=== PATIENT | male | born 1945 | race Caucasian/White ===

== ENCOUNTER → 2019-09-28 10:02 | Outpatient (BNVA) | payer MEDICARE, BC, SELFPAY | PROVIDERS: Family Provider Family Medicine; PCP Family Medicine; Visit Provider Urology | DX: R97.20 Elevated prostate specific antigen [PSA] (principal); N40.1 Benign prostatic hyperplasia with lower urinary tract symptoms; N13.8 Other obstructive and reflux uropathy | CPT/HCPCS: 81001; 84153 ==

== ENCOUNTER 2020-01-24 16:23 | Outpatient (CLI) | payer MEDICARE, BC, SELFPAY ==
--- NOTE | 2020-01-24 | CTR_ITS ---
PROCEDURE INFORMATION: Exam: CT Abdomen And Pelvis With Contrast Exam date and time: 01/24/2020 4:50 PM Age: 74 years old Clinical indication: Abdominal pain; Localized; Right lower quadrant (rlq); Patient HX: Please call report to Dr luu [phone]; Additional info: Acute rlq pain TECHNIQUE: Imaging protocol: Computed tomography of the abdomen and pelvis with intravenous contrast. Radiation optimization: All CT scans at this facility use at least one of these dose optimization techniques: automated exposure control; mA and/or kV adjustment per patient size (includes targeted exams where dose is matched to clinical indication); or iterative reconstruction. Contrast material: OMNI 300; Contrast volume: 95 ml; Contrast route: INTRAVENOUS (IV); Other contrast: Oral, OMNI 300, 25; COMPARISON: No relevant prior studies available. RADIATION DOSE METRICS: Total DLP (mGy-cm): 604.15 FINDINGS: Liver: Unremarkable. No mass. Gallbladder and bile ducts: Normal. No calcified stones. No ductal dilation. Pancreas: Normal. No ductal dilation. Spleen: Few calcified splenic granulomas. Spleen otherwise unremarkable. Adrenals: Normal. No mass. Kidneys and ureters: Examination reveals a tiny proximal right ureteral lithiasis measuring 2 mm with resulting mild right pelvicaliectasis. The stone is located approximately 3 cm from the right ureteropelvic junction. No visible residual nephrolithiasis right kidney. No visible nephrolithiasis left kidney. No hydronephrosis left kidney. Tiny benign cortical cyst equator left kidney. No follow-up recommended. Stomach and bowel: Diverticulosis coli without evidence for diverticulitis. Nonobstructive bowel pattern. Heavy fecal residue consistent with constipation. No visible adynamic or reactive ileus. Appendix: Appendix is noninflamed. Intraperitoneal space: Unremarkable. No free air. No significant fluid collection. Vasculature: The abdominal aorta is nonaneurysmal. Mild arterial sclerotic disease. Duplex inferior vena cava. Lymph nodes: Unremarkable. No enlarged lymph nodes. Bladder: Urinary bladder without filling defect. Reproductive: Prostate hypertrophy. Bones/joints: Age-appropriate degenerative disease of the spine. Degenerative disc disease most advanced L2/L3 and L5/S1. Soft tissues: Unremarkable. CT/CT abdomen pelvis w con* [id number] IMPRESSION: Examination reveals a tiny proximal right ureteral lithiasis measuring 2 mm with resulting mild right pelvicaliectasis. The stone is located approximately 3 cm from the right ureteropelvic junction. COMMENTS: Consistent with the [employer]'s Incidental Findings Committee white paper (J Am David Radiol 2018): Any incidental renal lesion less than 1.0 cm or classified as too small to characterize, or any incidental cystic renal lesion characterized as simple-appearing, is likely benign. No follow-up imaging is recommended for these lesions per consensus recommendations based on imaging criteria. Radiation Dose CTDIVOL = (mGy): DLP = 604.15 (mGy-cm)
[2020-01-24 17:22] LABS: Blood Urea Nitrogen 12 mg/dL (8-23)
[2020-01-24] MEDS: iohexol 300 mg/mL 50 mL Btl PO (18:18)
[2020-01-24] MEDS: iohexol 300 mg/mL 100 mL Btl IV (18:18)
== END 2020-01-24 16:24 | disposition home or self-care (01) ==
LOC: RAD 16:30
PROVIDERS: PCP Family Medicine; Visit Provider Family Medicine
DX: R10.31 Right lower quadrant pain (principal); N20.1 Calculus of ureter
CPT/HCPCS: 36415; 74177; 82565; 84520

== ENCOUNTER → 2020-09-26 09:42 | Outpatient (BNVA) | payer MEDICARE, BC, SELFPAY | PROVIDERS: PCP Family Medicine; Visit Provider Urology | DX: R97.20 Elevated prostate specific antigen [PSA] (principal); N40.1 Benign prostatic hyperplasia with lower urinary tract symptoms; N13.8 Other obstructive and reflux uropathy; N42.89 Other specified disorders of prostate | CPT/HCPCS: 81003; 84153 ==

== ENCOUNTER 2021-05-07 12:34 | Outpatient (CLI) | payer MEDICARE, BC, SELFPAY ==
[2021-05-07 12:40] VITALS: BP 139/81; PULSE 81; RESP 16; TEMP 36.7; O2SAT 97; BMI 22.7
[2021-05-07 13:39] VITALS: BP 146/76; PULSE 65; RESP 16; TEMP 36.6; O2SAT 97
[2021-05-07 14:39] VITALS: BP 148/81; PULSE 64; RESP 16; TEMP 36.5; O2SAT 98
[2021-05-07 14:52] VITALS: BP 148/81; PULSE 64; RESP 16; TEMP 36.5
== END 2021-05-07 12:35 | disposition home or self-care (01) ==
LOC: OPS 12:40
PROVIDERS: PCP Family Medicine; Visit Provider Nurse Practitioner
DX: U07.1 COVID-19 (principal)
CPT/HCPCS: 96365

== ENCOUNTER 2021-06-18 06:00 | Outpatient (RCR) | payer MEDICARE, BC, SELFPAY | END 2021-07-02 23:59 | disposition home or self-care (01) | LOC: SPT 06:00 | PROVIDERS: PCP Family Medicine; Referring Provider Family Medicine; Visit Provider Family Medicine | DX: T79.A29A Traumatic compartment syndrome of unspecified lower extremity, initial encounter (principal) | CPT/HCPCS: 97161 ==

== ENCOUNTER 2021-06-26 10:35 | Outpatient (CLI) | payer MEDICARE, BC, SELFPAY | END 2021-06-26 10:36 | disposition home or self-care (01) | LOC: SPT 10:36 | PROVIDERS: PCP Family Medicine; Visit Provider Podiatrist Foot & Ankle Surgery | DX: Z46.89 Encounter for fitting and adjustment of other specified devices (principal); E11.9 Type 2 diabetes mellitus without complications; M20.20 Hallux rigidus, unspecified foot; M21.41 Flat foot [pes planus] (acquired), right foot; M21.42 Flat foot [pes planus] (acquired), left foot; M72.2 Plantar fascial fibromatosis | CPT/HCPCS: 97760; L3030 ==

== ENCOUNTER 2022-03-11 06:48 | Outpatient (CLI) | payer MEDICARE, BC, SELFPAY ==
[2022-03-11 07:38] LABS: Prostate Specific AG Urology 1.18 ng/mL (0-4)
== END 2022-03-11 06:49 | disposition home or self-care (01) ==
LOC: LAB 06:50
PROVIDERS: PCP Family Medicine; Visit Provider Urology
DX: R97.20 Elevated prostate specific antigen [PSA] (principal); N40.1 Benign prostatic hyperplasia with lower urinary tract symptoms; N13.8 Other obstructive and reflux uropathy; N42.89 Other specified disorders of prostate
CPT/HCPCS: 51741; 51798; 81003; 84153; 99213

== ENCOUNTER → 2022-12-22 07:38 | Outpatient (BNVA) | payer OTHER, SELFPAY | PROVIDERS: PCP Family Medicine; Visit Provider Podiatrist Foot & Ankle Surgery | DX: M20.21 Hallux rigidus, right foot (principal); M20.22 Hallux rigidus, left foot; M21.41 Flat foot [pes planus] (acquired), right foot; M21.42 Flat foot [pes planus] (acquired), left foot; L84 Corns and callosities; E11.42 Type 2 diabetes mellitus with diabetic polyneuropathy; Z79.4 Long term (current) use of insulin | CPT/HCPCS: 99214 ==

== ENCOUNTER 2023-03-26 08:43 | Emergency (ER) | payer OTHER, SELFPAY ==
[2023-03-26 08:48] VITALS: BP 163/91; PULSE 79; RESP 15; TEMP 36.5; O2SAT 97
--- NOTE | 2023-03-26 08:48 | ED_ITS ---
HPI - Extremity Problem General: Chief complaint: Extremity Problem,Nontraumatic Stated complaint[facility] Time Seen by Provider: 03/26/23 08:45 Source: patient Mode of arrival: ambulatory Limitations: no limitations History of Present Illness: Patient is a 77-year-old male with history of hyperlipidemia, hypertension, and diabetes who presents to the emergency department complaining of left lower extremity swelling onset 4-5 years but acutely worsening over the past few days. [facility] his acute worsening of his chronic lower leg edema for rule out DVT. He also notes the presence of multiple painful knots to his medial thigh. He denies any changes in strength or sensations, and further denies any paresthesias. He also states he has no history of DVT and has not been having any chest pain or shortness of breath. Patient states that he was seen by PCP recently for the leg swelling and discontinued on his amlodipine and started on losartan although has not began taking it yet. Otherwise he has not noticed any overlying skin changes to the left lower extremity, any further denies any other infectious symptoms. MD Complaint: extremity swelling (Left lower extremity) Onset (ago): year(s) Location: left and lower extremity Radiation: proximal Relieving factors: nothing Exacerbating factors: nothing Associated symptoms: Deny chest pain, fever(s) or rash Review of Systems Const: Denies: fever(s) or chills Eyes: Denies: change in vision or blurry vision Card: Denies: chest pain, palpitations, irregular heart rhythm, lightheadedness, syncope or dyspnea on exertion Resp: Denies: dyspnea, productive cough or pain on inspiration GI: Denies: abdominal pain, nausea, vomiting, heartburn or diarrhea : Denies: difficulty urinating or dysuria Musc: Reports: extremity pain ( Knots in left lower extremity) and extremity swelling (Left lower extremity); Denies: neck pain, back pain, joint pain or muscle weakness Skin/Breast: Denies: rash Neuro: Denies: numbness in extremities, weakness in extremities or sensory changes PFSH ED PFSH: Medical History Abnormal prostate specific antigen (PSA) 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 Social History Smoking and tobacco status: former smoker Alcohol intake: current Alcohol intake frequency: few times a month Substance/Drug Use: never Adopted: No Caregiver/support person: No Lives independently: No Household members: spouse Marital status: Current occupational status: retired Current gender identity: Male Physical Exam Const: COMMON NORMALS: no acute distress, average body habitus, patient oriented x3, no limitations, healthy appearing, alert and well nourished Resp: COMMON NORMALS: normal respiratory effort and clear to auscultation bilaterally AUSCULTATION: clear to auscultation bilaterally Cardio: COMMON NORMALS: regular rate and regular rhythm RATE: regular rate RHYTHM: regular rhythm Extremity: COMMON NORMALS: full ROM, capillary refill normal and no joint enlargement GENERAL: Yes normal exam except as noted LEFT LOWER EXTREMITY: Yes upper leg and Yes lower leg OTHER: L LE with obvious edema when compared to R LE; no pitting edema noted; he has no firmness to his calf and a negative Chula's; chronic varicosities noted; few areas of palpable cords consistent with superficial thrombophlebitis was notably to his left medial thigh; distal sensation, cap refill, and pulses normal Neuro: COMMON NORMALS: patient oriented x3, moves all extremities, no focal motor deficits, no sensory deficits noted and gait normal SENSORIUM/ORIENTATION: Yes alert Skin: COMMON NORMALS: no rashes or lesions noted GENERAL SKIN EXAM: no rashes or lesions noted TRAUMA: no lacerations or abrasions Course Vital Signs: Vital signs: Vital Signs Temperature 97.7 F 03/26/23 08:48 Pulse Rate 79 03/26/23 11:54 Respiratory Rate 15 03/26/23 11:54 Blood Pressure 163/91 03/26/23 11:54 Pulse Oximetry 97 03/26/23 11:54 Oxygen Delivery Me thod Room Air 03/26/23 08:48 MDM - Extremity (Nontraumatic) Medical Decision Making Ultrasound showing superficial thrombophlebitis. He has no DVT. Discussed symptomatic and conservative therapies at home. He can follow-up with [facility] in 2 weeks for repeat evaluation. Return to ED precautions given. Discharge Plan Discharge Patient Disposition: Home Clinical Impression: Acute superficial venous thrombosis of left lower extremity Condition: Stable Prescriptions: No Action finasteride 5 mg tablet 5 mg PO DAILY melatonin 3 mg capsule 3 mg PO DAILY PRN (Reason: Sleep) ibuprofen 200 mg capsule 200 mg PO Q6H PRN (Reason: Pain) saw palmetto 500 mg capsule 500 mg PO BID metformin 500 mg tablet 1,000 mg PO DAILY aspirin [Adult Low Dose Aspirin] 81 mg tablet,delayed release (DR/EC) 81 mg PO DAILY alogliptin 25 mg tablet 25 mg PO DAILY tamsulosin 0.4 mg capsule 0.4 mg PO DAILY (DME) custom orthotics See Rx Instructions .ROUTE .MEDSUPPLY Qty: 1 0RF Rx Instructions: As directed (DME) custom molded orthotics See Rx Instructions .Route .MEDSUPPLY Qty: 1 0RF Rx Instructions: As directed Multi-Vitamin Tablet 1 tab PO DAILY atorvastatin 20 mg tablet 10 mg PO DAILY losartan-hydrochlorothiazide 50-12.5 mg tablet 1 tab PO DAILY Probiotic 3 billion cell Capsule 3,000 mmu cells PO DAILY Rx Instructions: administer with a meal Discharge Orders: Discharge ED (Routine); Ordered 03/26/23 Ordered By: Leda Momin Referrals: Jak Xie MD [Primary Care Provider] - Patient Instructions: Superficial Thrombophlebitis (ED), Thrombophlebitis - Superficial Activity Restrictions/Additional Instructions: We discussed your ultrasound today showed thrombus/clot within your superficial veins. We do not treat these with anticoagulation ( blood thinners ) and instead treat them with/heat and anti-inflammatory pain medication. Please follow-up with your primary care provider in the next 2 weeks for follow-up. Coding Level of Care Code ED Overhead Cleaner Maintainer for Eduard Devine
--- NOTE | 2023-03-26 10:14 | USCV_ITS ---
Reji Ramírez Age: 77 Gender: M : 1945 Exam Date: 03/26/2023 10:55 Ordering Phys: Leda Momin Technologist: Jamir Barros Exam Location: [facility] [place]_ Indication: lt leg pain with knots PROCEDURES: Venous duplex imaging was performed in only the left lower extremity. The following venous structures were evaluated: common femoral vein, profunda vein, proximal portion of the greater saphenous vein, superficial femoral vein, and the popliteal vein. In addition, the posterior tibial and peroneal trunk were evaluated. FINDINGS: There is a large amount of superfical thrombus in the lower gsaph. The deep veins are normal. CONCLUSIONS Occluding large SVT in the lower greater saphenous vein.. Remainder LLE normal Tapper Bit notified provider at time of exam Colton Oneill MD (Electronically Signed) Final Date: 26 March 2023 11:24 S
[2023-03-26 11:54] VITALS: BP 163/91; PULSE 79; RESP 15; O2SAT 97
== END 2023-03-26 11:56 | disposition home or self-care (01) ==
PROVIDERS: Emergency Provider Physician Assistant; PCP Family Medicine
DX: I82.812 Embolism and thrombosis of superficial veins of left lower extremity (principal); Z79.82 Long term (current) use of aspirin; Z79.84 Long term (current) use of oral hypoglycemic drugs; Z87.891 Personal history of nicotine dependence
CPT/HCPCS: 93971; 99284

== ENCOUNTER 2023-05-25 11:19 | Outpatient (CLI) | payer MEDICARE, BC, SELFPAY ==
--- NOTE | 2023-05-25 11:29 | USCV_ITS ---
Reji Ramírez Age: 77 Gender: M : 1945 Exam Date: 05/25/2023 12:00 Ordering Phys: Jak Xie MD Technologist: CT Exam Location: [facility] [place]_ Indication: HISTORY: PROCEDURES: FINDINGS: The proximal, mid, distal and below-knee greater saphenous vein segments were found to have significant reflux-lasting for 3.71, 3.62, 4.45 and 3.11 seconds. These venous segments were measuring elevated from 0.32 0.46 cm in diameter. They were found to be less than 1 cm deep from the surface On the left side, the greater saphenous vein was found to be thrombosed have echogenic material in the lumen with and was found to be noncompressible. CONCLUSIONS 1. Significant venous reflux of greater than 500 ms were noted in the proximal, mid, distal and below-knee segments of the greater saphenous vein on the right side. However the venous segments were found to be very superficial, less than 1 cm deep from the surface. 2. The greater saphenous vein on the left side was found to be thrombosed 3. No significant reflux were noted in the deep veins. 4. No significant reflux in the small saphenous veins. Dr Natacha Bryant MD [facility] (Electronically Signed) Final Date: 05 June 2023 09:57 S
== END 2023-05-25 11:20 | disposition home or self-care (01) ==
LOC: RAD 11:20
PROVIDERS: PCP Family Medicine; Visit Provider Family Medicine
DX: I87.2 Venous insufficiency (chronic) (peripheral) (principal)
CPT/HCPCS: 93970

== ENCOUNTER → 2023-10-08 09:33 | Outpatient (BNVA) | payer OTHER, SELFPAY | PROVIDERS: PCP Family Medicine; Visit Provider Podiatrist Foot & Ankle Surgery | DX: M21.41 Flat foot [pes planus] (acquired), right foot; M21.42 Flat foot [pes planus] (acquired), left foot; L84 Corns and callosities; E11.42 Type 2 diabetes mellitus with diabetic polyneuropathy; M20.21 Hallux rigidus, right foot; M20.22 Hallux rigidus, left foot; Z79.84 Long term (current) use of oral hypoglycemic drugs | CPT/HCPCS: 99213 ==

== ENCOUNTER → 2023-12-15 08:34 | Outpatient (BNVA) | payer OTHER, SELFPAY | PROVIDERS: PCP Family Medicine; Visit Provider Podiatrist Foot & Ankle Surgery | DX: L60.3 Nail dystrophy (principal); M20.20 Hallux rigidus, unspecified foot; M21.41 Flat foot [pes planus] (acquired), right foot; M21.42 Flat foot [pes planus] (acquired), left foot; L84 Corns and callosities; E11.42 Type 2 diabetes mellitus with diabetic polyneuropathy; Z79.84 Long term (current) use of oral hypoglycemic drugs | CPT/HCPCS: 11055; 11721 ==

== ENCOUNTER → 2024-03-04 08:51 | Outpatient (BNVA) | payer OTHER, SELFPAY | PROVIDERS: PCP Family Medicine; Visit Provider Podiatrist Foot & Ankle Surgery | DX: L60.3 Nail dystrophy (principal); M21.41 Flat foot [pes planus] (acquired), right foot; M21.42 Flat foot [pes planus] (acquired), left foot; L84 Corns and callosities; E11.42 Type 2 diabetes mellitus with diabetic polyneuropathy; M20.22 Hallux rigidus, left foot; M20.21 Hallux rigidus, right foot; Z79.84 Long term (current) use of oral hypoglycemic drugs | CPT/HCPCS: 11055; 11721 ==

== ENCOUNTER → 2024-05-17 14:56 | Outpatient (BNVA) | payer OTHER, SELFPAY | PROVIDERS: PCP Family Medicine; Visit Provider Podiatrist Foot & Ankle Surgery | DX: L60.3 Nail dystrophy (principal); M21.41 Flat foot [pes planus] (acquired), right foot; M21.42 Flat foot [pes planus] (acquired), left foot; L84 Corns and callosities; E11.42 Type 2 diabetes mellitus with diabetic polyneuropathy; M20.21 Hallux rigidus, right foot; M20.22 Hallux rigidus, left foot; Z79.84 Long term (current) use of oral hypoglycemic drugs | CPT/HCPCS: 11721 ==

== ENCOUNTER 2024-10-10 07:39 | Outpatient (CLI) | payer MEDICARE, BC, SELFPAY ==
--- NOTE | 2024-10-10 07:46 | MR_ITS ---
WS: [id number] MRI LEFT SHOULDER HISTORY: L SHOULDER IMPINGEMENT COMPARISON: 03/19/2021 TECHNIQUE: Multiplanar sequences of the shoulder joint are submitted. 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 Hypertrophic bone formation encroaching upon the supraspinatus myotendinous region. There is fluid along the AC joint. Fluid in the subacromial and subdeltoid bursa. Marked subacromial impingement. Downsloping acromion. Abnormal biceps tendon. Abnormal signal in the biceps tendon at the bicipital groove and small caliber tendon consistent with partial tear. No os acromion. Supraspinatus tendon is completely torn and retracted to the medial humeral head. Thinning of the retracted tendon. Full-thickness tear is new since 2010. Distal subscapularis tendon is difficult to visualize and appears partially torn. Marked narrowing of the coracohumeral interval. Tendinopathy in the distal infraspinatus tendon but no full-thickness tear. There is a large joint effusion. Significant distention of the subscapularis recess. Moderate atrophy the supraspinatus muscle with a small amount of edema. Infraspinatus muscle has also atrophied which is new since 2010. High riding humeral head. Loss of cartilage surrounding the humeral head no definite labral tear. MR/MR shoulder LT wo con* [id number] IMPRESSION: 1. Significant progression of degenerative changes at the LEFT shoulder since 2010. 2. Complete tear of the supraspinatus tendon with retraction to the medial hum eral head. 3. Partial tear distal subscapularis tendon. 4. Severe AC joint arthritis encroaching upon the myotendinous portion of the supraspinatus. Downsloping of the acromion. 5. Abnormal biceps tendon in the bicipital groove. Partial tear. 6. Large glenohumeral joint effusion with extension into the subscapularis rec ess. 7. Moderate atrophy of the supraspinatus muscle with edema. 8. New infraspinatus muscle atrophy also identified. No definite tendon tear i s identified. There is tendinopathy. There may be an occult tear not visualized . 9. Narrowing of the coracohumeral interval.
== END 2024-10-10 07:40 | disposition home or self-care (01) ==
PROVIDERS: PCP Family Medicine; Visit Provider Orthopaedic Surgery
DX: M75.42 Impingement syndrome of left shoulder (principal); M19.012 Primary osteoarthritis, left shoulder; M75.102 Unspecified rotator cuff tear or rupture of left shoulder, not specified as traumatic; S46.812A Strain of other muscles, fascia and tendons at shoulder and upper arm level, left arm, initial encounter; X58.XXXA Exposure to other specified factors, initial encounter; R93.6 Abnormal findings on diagnostic imaging of limbs; M62.58 Muscle wasting and atrophy, not elsewhere classified, other site; M25.412 Effusion, left shoulder
CPT/HCPCS: 73221

== ENCOUNTER → 2024-11-16 06:37 | Outpatient (BNVA) | payer OTHER, SELFPAY | PROVIDERS: PCP Family Medicine; Visit Provider Podiatrist Foot & Ankle Surgery | DX: E11.42 Type 2 diabetes mellitus with diabetic polyneuropathy (principal); L60.3 Nail dystrophy; M20.20 Hallux rigidus, unspecified foot; M21.41 Flat foot [pes planus] (acquired), right foot; M21.42 Flat foot [pes planus] (acquired), left foot; L84 Corns and callosities; Z79.84 Long term (current) use of oral hypoglycemic drugs | CPT/HCPCS: 11721; 99213 ==

== ENCOUNTER → 2025-01-18 06:45 | Outpatient (BNVA) | payer OTHER, SELFPAY | PROVIDERS: PCP Family Medicine; Visit Provider Podiatrist Foot & Ankle Surgery | DX: E11.42 Type 2 diabetes mellitus with diabetic polyneuropathy (principal); L60.3 Nail dystrophy; M21.41 Flat foot [pes planus] (acquired), right foot; M21.42 Flat foot [pes planus] (acquired), left foot; L84 Corns and callosities; M20.21 Hallux rigidus, right foot; M20.22 Hallux rigidus, left foot; Z79.84 Long term (current) use of oral hypoglycemic drugs | CPT/HCPCS: 11721; 99213 ==

== ENCOUNTER → 2025-07-19 06:47 | Outpatient (BNVA) | payer OTHER, SELFPAY | PROVIDERS: PCP Family Medicine; Visit Provider Podiatrist Foot & Ankle Surgery | DX: E11.8 Type 2 diabetes mellitus with unspecified complications (principal); L60.3 Nail dystrophy; M20.20 Hallux rigidus, unspecified foot; M21.41 Flat foot [pes planus] (acquired), right foot; M21.42 Flat foot [pes planus] (acquired), left foot; L84 Corns and callosities; E11.42 Type 2 diabetes mellitus with diabetic polyneuropathy | CPT/HCPCS: 11721; 99213 ==